=== PATIENT | female | born 1985 | race Hispanic/Latino ===

== ENCOUNTER 2018-12-26 18:16 | Emergency (ER) | payer BC ==
[2018-12-26] MEDS ORDERED: Ketorolac Tromethamine 30 MG/ML VIAL ONE (18:31)
[2018-12-26] MEDS ORDERED: Ondansetron ODT 4 MG TAB ONE (18:31)
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
== END 2018-12-26 20:40 | disposition home or self-care (01) ==
LOC: ERS 18:16
DX: M54.2 Cervicalgia (principal); J45.909 Unspecified asthma, uncomplicated; V59.9XXA Occupant (driver) (passenger) of pick-up truck or van injured in unspecified traffic accident, initial encounter
CPT/HCPCS: 70450; 72125; 96372; J1885; Q0162

== ENCOUNTER 2020-05-23 14:11 | Emergency (ER) | payer OTHER ==
[2020-05-23] MEDS ORDERED: Acetaminophen 500 MG TAB ONE (14:44)
[2020-05-24 11:44] LABS: SARS-CoV-2 MS2 Positive; SARS-CoV-2 N Gene Positive; SARS-CoV-2 S Gene Positive; SARS-CoV-2 by NAA DETECTED (NotDetected); SARS-CoV-2 orf1ab Positive
== END 2020-05-23 15:10 | disposition home or self-care (01) ==
LOC: ERS 14:11
DX: U07.1 COVID-19 (principal); J45.909 Unspecified asthma, uncomplicated
CPT/HCPCS: 87635; 99283; U0003

== ENCOUNTER 2021-03-16 07:44 | Outpatient (CLI) | payer OTHER | END 2021-03-16 07:45 | disposition home or self-care (01) | LOC: BICULT 07:44 | PROVIDERS: ATTEND Nurse Practitioner Family | DX: R10.32 Left lower quadrant pain (principal) | CPT/HCPCS: 93975 ==

== ENCOUNTER 2023-04-17 06:51 | Emergency (ER) | payer OTHER ==
[2023-04-17] MEDS ORDERED: Acetaminophen 500 MG TAB ONE (07:40)
== END 2023-04-17 08:27 | disposition home or self-care (01) ==
LOC: ERS 06:51
DX: S00.03XA Contusion of scalp, initial encounter (principal); S29.012A Strain of muscle and tendon of back wall of thorax, initial encounter; W01.198A Fall on same level from slipping, tripping and stumbling with subsequent striking against other object, initial encounter
CPT/HCPCS: 70450; 72125; 72128

== ENCOUNTER 2023-09-06 13:56 | Outpatient (CLI) | payer BC | END 2023-09-06 13:57 | disposition home or self-care (01) | LOC: BICULT 13:56 | PROVIDERS: ATTEND Nurse Practitioner Family | DX: N83.202 Unspecified ovarian cyst, left side (principal); N83.291 Other ovarian cyst, right side | CPT/HCPCS: 76856 ==